=== PATIENT | female | born 1990 | race Caucasian/White ===

== ENCOUNTER 2016-07-27 17:26 | Emergency (ER) | payer MEDICAID, OTHER ==
[~2016-07-27] VITALS: Ht 154.9 cm; Wt 100.0 kg
[~2016-07-27 17:26] MED LIST: LORC10TA PO; PROM25SU8 PO; Z.0.NO CURRENT MEDS
[2016-07-27 17:28] VITALS: BP 139/86; PULSE 96; RESP 12; TEMP 98.2; O2SAT 99
== END 2016-07-27 21:41 | disposition left against medical advice (07) ==
LOC: NED 17:26
DX: R10.9 Unspecified abdominal pain (principal)
CPT/HCPCS: 99281